=== PATIENT | female | born 1995 | race Two or more races ===

== ENCOUNTER 2018-07-13 17:16 | Emergency (ER) | payer MEDICAID, OTHER ==
[~2018-07-13] VITALS: Ht 154.9 cm; Wt 61.2 kg
[2018-07-13 17:27] VITALS: BP 117/76
== END 2018-07-14 00:36 | disposition left against medical advice (07) ==
LOC: ER 17:22
DX: M79.674 Pain in right toe(s) (principal); Z53.21 Procedure and treatment not carried out due to patient leaving prior to being seen by health care provider

== ENCOUNTER 2018-12-31 12:36 | Emergency (ER) | payer MEDICAID ==
[~2018-12-31] VITALS: Ht 154.9 cm; Wt 63.5 kg
[2018-12-31 14:05] LABS: Urine Bacteria FEW /hpf (None Seen); Urine Blood Negative /uL (Negative); Urine Mucus FEW (None Seen); Urine Specific Gravity 1.017 (1.001-1.035); Urine WBC 3 /hpf (0 - 5)
[2018-12-31 14:38] VITALS: BP 152/94
== END 2018-12-31 17:14 | disposition home or self-care (01) ==
LOC: ER 12:37
DX: N76.0 Acute vaginitis (principal); B96.89 Other specified bacterial agents as the cause of diseases classified elsewhere; N39.0 Urinary tract infection, site not specified; R21 Rash and other nonspecific skin eruption; Z88.1 Allergy status to other antibiotic agents
CPT/HCPCS: 81001; 81025

== ENCOUNTER 2019-01-19 14:31 | Emergency (ER) | payer MEDICAID ==
[~2019-01-19] VITALS: Ht 154.9 cm; Wt 68.0 kg
[2019-01-19 14:41] VITALS: BP 138/85
[2019-01-19 16:03] LABS: Urine Bacteria FEW /hpf (None Seen); Urine Blood 2+ /uL (Negative); Urine Mucus FEW (None Seen); Urine Specific Gravity 1.014 (1.001-1.035); Urine WBC 447 /hpf (0 - 5)
== END 2019-01-19 16:43 | disposition home or self-care (01) ==
LOC: ER 14:31
DX: N39.0 Urinary tract infection, site not specified (principal); Z87.891 Personal history of nicotine dependence; Z88.1 Allergy status to other antibiotic agents
CPT/HCPCS: 81001

== ENCOUNTER 2020-01-10 19:24 | Emergency (ER) | payer MEDICAID, OTHER ==
[~2020-01-10] VITALS: Ht 154.9 cm; Wt 77.1 kg
[2020-01-10] MEDS ORDERED: HYDROcodone-ACET 5/325MG TAB PO ONE (20:00)
[2020-01-10 20:30] VITALS: BP 147/95
== END 2020-01-10 22:32 | disposition home or self-care (01) ==
LOC: ER 19:24
DX: S66.912A Strain of unspecified muscle, fascia and tendon at wrist and hand level, left hand, initial encounter (principal); S66.911A Strain of unspecified muscle, fascia and tendon at wrist and hand level, right hand, initial encounter; V43.52XA Car driver injured in collision with other type car in traffic accident, initial encounter; Y93.89 Activity, other specified; Y92.488 Other paved roadways as the place of occurrence of the external cause; Y99.8 Other external cause status
CPT/HCPCS: 71046; 72040; 73090; 73130

== ENCOUNTER 2020-08-14 23:47 | Emergency (ER) | payer MEDICAID ==
[~2020-08-14] VITALS: Ht 154.9 cm; Wt 71.7 kg
[2020-08-15 00:58] LABS: Urine Bacteria FEW /hpf (None Seen); Urine Blood Negative /uL (Negative); Urine Mucus FEW (None Seen); Urine Specific Gravity 1.044 (1.001-1.035); Urine WBC 46 /hpf (0 - 5)
[2020-08-15 04:38] VITALS: BP 121/76
== END 2020-08-15 05:02 | disposition home or self-care (01) ==
LOC: ER 23:47
DX: N39.0 Urinary tract infection, site not specified (principal); Z32.02 Encounter for pregnancy test, result negative; Z87.891 Personal history of nicotine dependence; Z88.1 Allergy status to other antibiotic agents
CPT/HCPCS: 81001; 81025

== ENCOUNTER → 2021-12-19 | Outpatient (CLI) | payer MEDICAID ==
[2021-12-19 09:41] LABS: Basophils # (auto) 0.1 10 ^3/uL (0-0.2); Eosinophils # (auto) 0 10 ^3/uL (0-0.8); Eosinophils % (auto) 0.5 % (0.0-7.0); Hematocrit 43.2 % (36.0-46.0); Hemoglobin 14.6 g/dL (12.2-16.2); Lymphocytes # (auto) 1.4 10 ^3/uL (0.4-5.4); Lymphocytes % (auto) 18.2 % (10.0-50.0); Mean Corpuscular Hemoglobin 32.1 pg (28.0-32.0); Mean Corpuscular Hgb Conc. 33.8 g/dL (32.0-36.0); Monocytes # (auto) 0.3 10 ^3/uL (0-1.3); Monocytes % (auto) 3.8 % (0.0-12.0); Neutrophils # (auto) 5.8 10 ^3/uL (1.6-8.6); Neutrophils % (auto) 76.5 % (37.0-80.0); Red Blood Cells 4.54 10^6/uL (4.0-5.20); Red Cell Distribution Width 12.5 % (11.8-14.3); White Blood Cell 7.6 10^3/uL (4.4-10.8)
[2021-12-19 10:01] LABS: Albumin 4.4 g/dL (3.4-5.0); Calcium 9.4 mg/dL (8.5-10.1); Potassium 4.1 mmol/L (3.5-5.1)
[2021-12-19 10:05] LABS: BUN/Creatinine Ratio 20.4; Total Protein 8.4 g/dL (6.4-8.2)
== END | disposition home or self-care (01) ==
LOC: LAB 08:57
PROVIDERS: ATTEND Nurse Practitioner Family
DX: F32.A Depression, unspecified (principal); Z20.01 Contact with and (suspected) exposure to intestinal infectious diseases due to Escherichia coli (E. coli)
CPT/HCPCS: 36415; 80053; 84439; 84443; 85025; 86695; 86696; 86703

== ENCOUNTER → 2022-01-23 | Outpatient (CLI) | payer MEDICAID | END | disposition home or self-care (01) | LOC: LAB 09:12 | PROVIDERS: ATTEND Nurse Practitioner Family | DX: Z02.0 Encounter for examination for admission to educational institution (principal) | CPT/HCPCS: 36415; 86706; 86735; 86762; 86765; 86787 ==

== ENCOUNTER → 2022-03-24 | Outpatient (CLI) | payer OTHER | END | disposition home or self-care (01) | LOC: LAB 10:10 | PROVIDERS: ATTEND Nurse Practitioner Family | DX: Z02.0 Encounter for examination for admission to educational institution (principal) | CPT/HCPCS: 86762; 86765 ==

== ENCOUNTER → 2023-02-27 | Outpatient (CLI) | payer MEDICAID ==
[2023-02-27 09:47] LABS: Basophils # (auto) 0.1 10 ^3/uL (0-0.2); Basophils % (auto) 0.8 % (0.0-2.0); Eosinophils # (auto) 0 10 ^3/uL (0-0.8); Eosinophils % (auto) 0.5 % (0.0-7.0); Hematocrit 41.6 % (36.0-46.0); Hemoglobin 13.9 g/dL (12.2-16.2); Lymphocytes # (auto) 1.5 10 ^3/uL (0.4-5.4); Lymphocytes % (auto) 17.4 % (10.0-50.0); Mean Corpuscular Hemoglobin 31.3 pg (28.0-32.0); Mean Corpuscular Hgb Conc. 33.5 g/dL (32.0-36.0); Mean Corpuscular Volume 93.5 fL (80.0-100.0); Monocytes # (auto) 0.4 10 ^3/uL (0-1.3); Monocytes % (auto) 4.3 % (0.0-12.0); Neutrophils # (auto) 6.6 10 ^3/uL (1.6-8.6); Red Blood Cells 4.44 10^6/uL (4.0-5.20); Red Cell Distribution Width 13.4 % (11.8-14.3); White Blood Cell 8.6 10^3/uL (4.4-10.8)
[2023-02-27 10:18] LABS: Alanine Aminotransferase 19 U/L (7-40); Alkaline Phosphatase 75 U/L (46-116); Anion Gap 6 (5-15); Aspartate Aminotransferase 13 U/L (13-40); BUN/Creatinine Ratio 9.4 (10.0-20.0); Blood Urea Nitrogen 8 mg/dL (9-23); Calcium 9.4 mg/dL (8.5-10.1); Carbon Dioxide 24 mmol/L (20-30); Chloride 111 mmol/L (98-107); Glucose 95 mg/dL (74-106); LDL Cholesterol 107 mg/dL (< 100); Potassium 4.2 mmol/L (3.5-5.1); Sodium 141 mmol/L (136-145); Triglycerides 80 mg/dL (< 150)
[2023-02-27 10:19] LABS: Albumin 4.6 g/dL (3.2-4.8); Cholesterol 149 mg/dL (< 200); HDL Cholesterol 37 mg/dL (40-59)
[2023-02-27 10:20] LABS: Bilirubin, Total 0.6 mg/dL (0.2-1.0); Total Protein 7.3 g/dL (5.7-8.2)
== END | disposition home or self-care (01) ==
LOC: LAB 09:33
PROVIDERS: ATTEND Nurse Practitioner Family
DX: Z00.01 Encounter for general adult medical examination with abnormal findings (principal); F41.9 Anxiety disorder, unspecified
CPT/HCPCS: 36415; 80053; 80061; 84439; 84443; 85025

== ENCOUNTER → 2023-06-25 | Outpatient (CLI) | payer MEDICAID ==
[2023-06-25 09:51] LABS: Urine Bacteria None Seen /hpf (None Seen)
[2023-06-25 10:08] LABS: Basophils # (auto) 0.1 10 ^3/uL (0-0.2); Basophils % (auto) 0.8 % (0.0-2.0); Eosinophils # (auto) 0.1 10 ^3/uL (0-0.8); Eosinophils % (auto) 0.8 % (0.0-7.0); Hematocrit 43.2 % (36.0-46.0); Hemoglobin 14.8 g/dL (12.2-16.2); Lymphocytes # (auto) 1.8 10 ^3/uL (0.4-5.4); Lymphocytes % (auto) 23.1 % (10.0-50.0); Mean Corpuscular Hemoglobin 31.8 pg (28.0-32.0); Mean Corpuscular Hgb Conc. 34.2 g/dL (32.0-36.0); Mean Corpuscular Volume 92.9 fL (80.0-100.0); Monocytes # (auto) 0.4 10 ^3/uL (0-1.3); Neutrophils # (auto) 5.6 10 ^3/uL (1.6-8.6); Neutrophils % (auto) 70.3 % (37.0-80.0); Red Blood Cells 4.66 10^6/uL (4.0-5.20); Red Cell Distribution Width 12.8 % (11.8-14.3); White Blood Cell 7.9 10^3/uL (4.4-10.8)
[2023-06-25 10:27] LABS: Urine Blood 2+ /uL (Negative); Urine Clarity Turbid (Clear); Urine Color Yellow (Yellow); Urine Protein, UAD TRACE (Negative); Urine Specific Gravity 1.026 (1.001-1.035); Urine Urobilinogen Normal (Negative); Urine WBC 2 /hpf (0 - 5)
[2023-06-25 10:44] LABS: Alanine Aminotransferase 19 U/L (7-40); Albumin 4.7 g/dL (3.2-4.8); Alkaline Phosphatase 89 U/L (46-116); Amylase 65 U/L (30-118); Anion Gap 9 (5-15); Aspartate Aminotransferase 13 U/L (13-40); BUN/Creatinine Ratio 11.3 (10.0-20.0); Bilirubin, Total 0.9 mg/dL (0.2-1.0); Blood Urea Nitrogen 11 mg/dL (9-23); Calcium 9.7 mg/dL (8.5-10.1); Carbon Dioxide 23 mmol/L (20-30); Chloride 107 mmol/L (98-107); Glucose 96 mg/dL (74-106); Potassium 4.4 mmol/L (3.5-5.1); Sodium 139 mmol/L (136-145); Total Protein 7.9 g/dL (5.7-8.2)
[2023-06-25 11:49] LABS: Lipase 41 U/L (12-53)
== END | disposition home or self-care (01) ==
LOC: LAB 09:40
PROVIDERS: ATTEND Nurse Practitioner Family
DX: R10.13 Epigastric pain (principal)
CPT/HCPCS: 36415; 80053; 81001; 82150; 83690; 84702; 85025

== ENCOUNTER → 2025-01-13 | Outpatient (CLI) | payer MEDICAID ==
[2025-01-13 11:51] LABS: Hematocrit 41.6 % (36.0-46.0); Hemoglobin 14.4 g/dL (12.2-16.2); Mean Corpuscular Hemoglobin 32.6 pg (28.0-32.0); Mean Corpuscular Volume 93.9 fL (80.0-100.0); Nucleated Red Blood Cells % 0.0 %
[2025-01-15 06:07] LABS: Chlamydia Trachomatis, NAA Negative (Negative); Neisseria gonorrhoeae, NAA Negative (Negative)
== END | disposition home or self-care (01) ==
LOC: LAB 10:50
PROVIDERS: ATTEND Obstetrics & Gynecology
DX: Z34.80 Encounter for supervision of other normal pregnancy, unspecified trimester (principal); Z11.3 Encounter for screening for infections with a predominantly sexual mode of transmission; Z72.51 High risk heterosexual behavior; Z3A.00 Weeks of gestation of pregnancy not specified
CPT/HCPCS: 36415; 83036; 84144; 84702; 85025; 86703; 86762; 86780; 86850; 86900; 86901; 87086; 87340

== ENCOUNTER 2025-02-07 08:07 | Emergency (ER) | payer MEDICAID ==
[~2025-02-07] VITALS: Ht 154.9 cm; Wt 68.1 kg
--- NOTE | 2025-02-07 08:21 | ED.PDOC ---
HPI Comments 29-year-old female presents to the ED for chief complaint of substernal chest pain associated with shortness of breath and lightheadedness, that started this morning at 7:00 a.m. which woke her up from her sleep. Patient reports she is 14 weeks gestation. Additionally, she reports abdominal pain that first presented as sharp and diffused since the beginning of her but states now pain is more localized to the left side and is dull. Patient ordered to be on pelvic rest, with sedentary work duty and is sitting with no lifting or heavy exertion reported. She denies any nausea, vomiting, diarrhea, fever, chills, vaginal bleeding, recent injuries, travel outside country. She is on progesterone x 1.5 months to reduce chance of miscarriage. 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 Pertinent JD [employer]ARDS DEVELOPER History Family History Family History: No family hx of DM, No family hx of Heart gautam, No family hx of HTN Social History Smoker: Quit Less Than 1 Year Alcohol: Occasionally Drugs: Denies Drug Use Lives In: Home Constitutional: denies: chills, diaphoresis, fatigue, fever, malaise, sweats, weakness, others EENTM: denies: blurred vision, double vision, ear bleeding, ear discharge, ear drainage, ear pain, ear ringing, eye pain, eye redness, hearing loss, mouth pain, mouth swelling, nasal discharge, nose bleeding, nose congestion, nose pain, photophobia, tearing, throat pain, throat swelling, voice changes, others Respiratory: denies: cough, hemoptysis, orthopnea, SOB at rest, shortness of breath, SOB with excertion, stridor, wheezing, others Cardiovascular: reports: chest pain; denies: dizzy spells, diaphoresis, Dyspnea on exertion, edema, irregular heart beat, left arm pain, lightheadedness, palpitations, PND, syncope, others Gastrointestinal: denies: abdomen distended, abdominal pain, blood streaked bowels, constipated, diarrhea, dysphagia, difficulty swallowing, hematemesis, melena, nausea, poor appetite, poor fluid intake, rectal bleeding, rectal pain, vomiting, others Genitourinary: denies: abnormal vagina bleeding, burning, dyspareunia, dysuria, flank pain, frequency, hematuria, incontinence, pain, , vagina discharge, urgency, others Neurological: denies: dizziness, fainting, headache, left sided numbness, left sided weakness, numbness, paresthesia, pre-existing deficit, right sided numbness, right sided weakness, seizure, speech problems, tingling, tremors, weakness, others Musculoskeletal: denies: back pain, gout, joint pain, joint swelling, muscle pain, muscle stiffness, neck pain, others Integumetry: denies: bruises, change in color, change in hair/nails, dryness, laceration, lesions, lumps, rash, wounds, others Allergic/Immunocompromised: denies: Difficulty Healing, Frequent Infections, Hives, Itching, others Hematologic/Lymphatic: denies: anemia, blood clots, easy bleeding, easy bruising, swollen glands, others Endocrine: denies: excessive hunger, excessive sweating, excessive thirst, excessive urination, flushing, intolerance to cold, intolerance to heat, unexplained weight gain, unexplained weight loss, others Psychiatric: denies: anxiety, bipolar disorder, depression, hopeless, panic disorder, schizophrenia, sleepless, suicidal, others All Other Systems: Reviewed and Negative Physical Exam General Appearance: No Apparent Distress, Normal HEENT: Normal ENT Inspection, Pharynx Normal, TMs Normal Neck: Full Range of Motion, Non-Tender, Normal, Normal Inspection Respiratory: Other (Tenderness to left chest wall which reproduces patient's pain.) Cardiovascular: No Edema, No JVD, No Murmur, No Gallop, Normal Peripheral Pulses, Regular Rate/Rhythm Breast Exam: Deferred Gastrointestinal: No Organomegaly, Non Tender, No Pulsatile Mass, Normal Bowel Sounds, Soft Genitalia: Deferred Pelvic: Deferred Rectal: Deferred Extremities: Other (No leg swelling bl lower extremity) Musculoskeletal : Apperance: Normal Neurologic: Alert, 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 No significant ST changes. EKG #2: Comments 9:36 a.m. Rate of 76 sinus rhythm no significant ST changes. Unchanged from previous EKG #3: Comments 11:09 a.m. Rate of [address] depression inferior leads consistent with similar EKGs Was a procedure done? Was a procedure done?: No CP Differential Dx Differential Diagnosis: N/A Differential Diagnosis: Angina, Chest Wall Pain, Costochondritis, Gastritis, Myocardial Infarction, Pericarditis X-Ray, Labs, Meds, VS Vital Signs Date Time Temp Pulse Resp B/P (MAP) Pulse Ox O2 Delivery O2 Flow Rate FiO2 02/07/25 12:06 98.9 88 16 121/75 (90) 99 98.9 02/07/25 11:09 76 02/07/25 09:36 76 02/07/25 08:41 98.3 97 18 144/85 99 98.3 02/07/25 08:14 82 Lab Test 02/07/25 09:50 02/07/25 09:44 02/07/25 08:30 Range/Units Urine Test Positive Negative Troponin I High Sensitivity < 3 L < 3 L </=34 ng/L White Blood Count 11.7 H 4.4-10.8 10^3/uL Red Blood Count 4.46 4.0-5.20 10^6/uL Hemoglobin 14.3 12.2-16.2 g/dL Hematocrit 41.5 36.0-46.0 % Mean Corpuscular Volume 93.2 80.0-100.0 fL Mean Corpuscular Hemoglobin 32.0 28.0-32.0 pg Mean Corpuscular Hemoglobin Concent 34.4 32.0-36.0 g/dL Red Cell Distribution Width 12.5 11.8-14.3 % Platelet Count 264 140-450 10^3/uL Mean Platelet Volume 8.6 6.9-10.8 fL Neutrophils (%) (Auto) 82.6 H 37.0-80.0 % Lymphocytes (%) (Auto) 13.6 10.0-50.0 % Monocytes (%) (Auto) 3.2 0.0-12.0 % Eosinophils (%) (Auto) 0.3 0.0-7.0 % Basophils (%) (Auto) 0.3 0.0-2.0 % Neutrophils # (Auto) 9.6 H 1.6-8.6 10 ^3/uL Lymphocytes # (Auto) 1.6 0.4-5.4 10 ^3/uL Monocytes # (Auto) 0.4 0-1.3 10 ^3/uL Eosinophils # (Auto) 0 0-0.8 10 ^3/uL Basophils # (Auto) 0 0-0.2 10 ^3/uL Nucleated Red Blood Cells 0.0 % D-Dimer, Quantitative 0.71 H 0.0-0.49 mg/L FEU Sodium Level 140 136-145 mmol/L Potassium Level 3.8 3.5-5.1 mmol/L Chloride Level 105 98-107 mmol/L Carbon Dioxide Level 24 20-31 mmol/L Anion Gap 11 5-15 Blood Urea Nitrogen 9 9-23 mg/dL Creatinine 0.75 0.550-1.02 mg/dL Glomerular Filtration Rate Calc 111 >90 mL/min BUN/Creatinine Ratio 12.0 10.0-20.0 Serum Glucose 91 74-106 mg/dL Calcium Level 9.7 8.7-10.4 mg/dL 29-year-old female proximally 14 weeks presents here with chest discomfort and shortness of breath that began this morning. Patient is currently on progesterone reduce risk for miscarriage. At this time I did order a chest x-ray however patient refused. Blood work has been done with a normal CBC and BMP. D-dimer has been ordered. D-dimer is elevated as expected at 0.71. This is within the range expected to her D-dimer at her current 14 week gestation. I did evaluate using the adapted years ago rhythm. She has no clinical signs of DVT she has no hemoptysis. Other diagnosis just as likely as PE. At this time I have ordered an ultrasound of the lower extremity which is negative for blood clot. Patient is not tachycardic, she is not tachypneic not hypoxic in the ER. At this time I did offer her admission for a V/Q scan for full evaluation for possible PE however she has refused. On examination she is tender to the left chest wall which reproduces the pain. She states her chest pain is much improved at 2/10 and shortness of breath has improved. At this time patient is low risk and I have discharged her home. Advised her that if anytime she has increased shortness of breath or worsening chest pain she needs to return back to the ER immediately. Patient agreeable. X-Ray, Labs, Meds, VS Comment [facility] [address] [facility] [id number] Ph: [phone] DIAGNOSTIC IMAGING Diagnostic Imaging Report : [id number] Signed PATIENT: WILLIE LINTON ACCT: [id number] UNIT: [id number] : 1995 LOC: ER ROOM / BED: / AGE / SEX: 29 / F ADM STATUS: REG ER SERVICE 1120 ORDERING PHYSICIAN: SUZY VILCHIS MD PROCEDURE(s): BLDVT - BiLat Lower DVT REASON: DVT ORDER NUMBER(s): [id number], ACCESSION NUMBER(s): [id number] EXAM: US BILAT LOWER DVT HISTORY: DVT COMPARISON: None available at the time of dictation TECHNIQUE: Duplex Doppler evaluation of the deep venous systems of both lower extremities from the common femoral veins to the popliteal veins including color Doppler and spectral/pulsed waveform analysis was performed. FINDINGS: RIGHT SIDE: The common femoral vein demonstrates appropriate compressibility and waveform variability. There is compressibility/patency of the great saphenous vein at the proximal thigh. The femoral vein demonstrates appropriate compressibility and waveform variability. The deep femoral vein demonstrates appropriate compressibility and waveform variability. The popliteal vein demonstrates appropriate compressibility and waveform variability. There is normal compressibility at the tibioperoneal trunk. LEFT SIDE: The common femoral vein demonstrates appropriate compressibility and waveform variability. There is compressibility/patency of the great saphenous vein at the proximal thigh. The femoral vein demonstrates appropriate compressibility and waveform variability. The deep femoral vein demonstrates appropriate compressibility and waveform variability. The popliteal vein demonstrates appropriate compressibility and waveform variability. There is normal compressibility at the tibioperoneal trunk. IMPRESSION: 1. No right or left femoropopliteal venous thrombosis. If clinical concern/symptoms persist or worsen, short-interval follow-up study is suggested. ATED BY: THOMAS LARA MD DICTATED DATE/TIME: 02/07/25 1230 SIGNED BY: THOMAS LARA MD SIGNED DATE/TIME: 02/07/25 1230 CC: Time of 1ST Reevaluation: 11:15 Reevaluation 1ST: Improved Patient Education/Counseling: Diagnosis, Treatment, Prognosis Family Education/Counseling: No Family Present SEPSIS Sepsis Screen Physician Orders Electrocardigram (02/07/25 08:45) Electrocardigram (02/07/25 09:45) Electrocardigram (02/07/25 11:45) Bilat Lower Dvt (02/07/25 11:20) Vital Signs Date Time Temp Pulse Resp B/P (MAP) Pulse Ox O2 Delivery O2 Flow Rate FiO2 02/07/25 12:06 98.9 88 16 121/75 (90) 99 98.9 02/07/25 11:09 76 02/07/25 09:36 76 02/07/25 08:41 98.3 97 18 144/85 99 98.3 02/07/25 08:14 82 Laboratory Tests Test 02/07/25 08:30 White Blood Count 11.7 10^3/uL (4.4-10.8) H Departure 1 Departure Time of Disposition: 13:20 Impression: Primary Impression: Atypical chest pain Disposition: 01 HOME / SELF CARE / HOMELESS Condition: Stable Written Prescriptions Please Return back to the ER immediately for symptoms worsen or persist. e-Prescriptions No Active Prescriptions or Reported Meds Critical Care Note Critical Care Time?: No Stability Stability form required: No Heart Score Heart Score: Heart Score Response (Comments) Value History Slightly Suspicious 0 EKG Repolarization Disturb 1 Age <45 0 Risk Factors No known risk factors 0 Troponin Normal limit 0 Total 1 I personally scribed for SUZY VILCHIS MD ([email or web address]) on 02/07/25 at 08:21. Electronically submitted by Lori Pandya ([facility] I personally scribed for SUZY VILCHIS MD ([email or web address]) on 02/07/25 at 09:21. Electronically submitted by Lori Pandya ([facility]). I personally scribed for SUZY VILCHIS MD ([email or web address]) on 02/07/25 at 11:22. Electronically submitted by Lori Pandya ([facility]). I personally scribed for SUZY VILCHIS MD ([email or web address]) on 02/07/25 at 12:43. Electronically submitted by Lori Pandya ([facility]). SUZY VILCHIS MD Feb 07, 2025 08:21
[2025-02-07 09:13] LABS: Hematocrit 41.5 % (36.0-46.0); Hemoglobin 14.3 g/dL (12.2-16.2); Mean Corpuscular Hemoglobin 32.0 pg (28.0-32.0); Mean Corpuscular Volume 93.2 fL (80.0-100.0); Nucleated Red Blood Cells % 0.0 %
[2025-02-07 09:18] LABS: Chloride 105 mmol/L (98-107); Potassium 3.8 mmol/L (3.5-5.1); Sodium 140 mmol/L (136-145)
[2025-02-07 09:19] LABS: Anion Gap 11 (5-15); Calcium 9.7 mg/dL (8.7-10.4); Carbon Dioxide 24 mmol/L (20-31)
[2025-02-07 09:24] LABS: BUN/Creatinine Ratio 12.0 (10.0-20.0); Glucose 91 mg/dL (74-106)
[2025-02-07 09:26] LABS: Blood Urea Nitrogen 9 mg/dL (9-23)
[2025-02-07 12:06] VITALS: BP 121/75; PULSE 88; RESP 16; TEMP 98.9; O2SAT 99
--- NOTE | 2025-02-07 12:32 | DVH ---
EXAM: US BILAT LOWER DVT HISTORY: DVT COMPARISON: None available at the time of dictation TECHNIQUE: Duplex Doppler evaluation of the deep venous systems of both lower extremities from the common femoral veins to the popliteal veins including color Doppler and spectral/pulsed waveform analysis was performed. FINDINGS: RIGHT SIDE: The common femoral vein demonstrates appropriate compressibility and waveform variability. There is compressibility/patency of the great saphenous vein at the proximal thigh. The femoral vein demonstrates appropriate compressibility and waveform variability. The deep femoral vein demonstrates appropriate compressibility and waveform variability. The popliteal vein demonstrates appropriate compressibility and waveform variability. There is normal compressibility at the tibioperoneal trunk. LEFT SIDE: The common femoral vein demonstrates appropriate compressibility and waveform variability. There is compressibility/patency of the great saphenous vein at the proximal thigh. The femoral vein demonstrates appropriate compressibility and waveform variability. The deep femoral vein demonstrates appropriate compressibility and waveform variability. The popliteal vein demonstrates appropriate compressibility and waveform variability. There is normal compressibility at the tibioperoneal trunk. IMPRESSION: 1. No right or left femoropopliteal venous thrombosis. If clinical concern/symptoms persist or worsen, short-interval follow-up study is suggested.
--- NOTE | 2025-02-09 09:05 | ECG ---
[facility] Test Date: 2025-02-07 Test Time: 08:14:27 Pat Name: WILLIE LINTON Department: Room: Gender: F Principal Web Developer: RIRI : 1995 Requested By: SUZY VILCHIS Order Number: [id number] Reading MD: Edd Driscoll Measurements Intervals [place] Rate: 82 P: 55 HI: 127 QRS: 83 QRSD: 85 T: 21 QT: 364 QTc: 425 Interpretive Statements Sinus rhythm Consider right atrial enlargement Borderline Q waves in lateral leads Minimal ST depression, diffuse leads Baseline wander in lead(s) II,III,aVF Electronically Signed On 02-12-2025 19:05:00 PST by Edd Driscoll Please click the below link to view image of tracing.
--- NOTE | 2025-02-10 06:36 | ECG ---
[facility] Test Date: 2025-02-07 Test Time: 09:36:52 Pat Name: WILLIE LINTON Department: ED Room: Gender: F Principal Technologist: SOLA : 1995 Requested By: SUZY VILCHIS Order Number: [id number] Reading MD: Edd Driscoll Measurements Intervals [place] Rate: 76 P: 51 HI: 136 QRS: 81 QRSD: 84 T: 18 QT: 367 QTc: 413 Interpretive Statements Sinus rhythm Borderline Q waves in lateral leads Electronically Signed On 02-12-2025 19:05:19 PST by Edd Driscoll Please click the below link to view image of tracing.
--- NOTE | 2025-02-10 06:36 | ECG ---
[facility] Test Date: 2025-02-07 Test Time: 11:09:40 Pat Name: WILLIE LINTON Department: ED Room: Gender: F Locks Tender: BETO : 1995 Requested By: SUZY VILCHIS Order Number: [id number] Reading MD: Edd Driscoll Measurements Intervals [place] Rate: 76 P: 50 [place]: 134 QRS: 83 QRSD: 81 T: 21 QT: 371 QTc: 418 Interpretive Statements Sinus rhythm Borderline Q waves in lateral leads Minimal ST depression, inferior leads Baseline wander in lead(s) I,II,aVR Electronically Signed On 02-12-2025 19:06:02 PST by Edd Driscoll Please click the below link to view image of tracing.
== END 2025-02-07 14:30 | disposition home or self-care (01) ==
LOC: ER 08:07
DX: O26.892 Other specified pregnancy related conditions, second trimester (principal); R07.2 Precordial pain; Z79.899 Other long term (current) drug therapy; Z88.1 Allergy status to other antibiotic agents; Z3A.14 14 weeks gestation of pregnancy
CPT/HCPCS: 36415; 80048; 81025; 84484; 85025; 85379; 93005; 93970